=== PATIENT | male | born 1940 | race Caucasian/White ===

== ENCOUNTER 2023-04-28 14:39 | Inpatient (IN) | payer MEDICARE ==
[2023-04-28] VITALS (16 sets, daily range): BP systolic 111–155; BP diastolic 64–96
[~2023-04-28] VITALS: Ht 177.8 cm; Wt 118.9 kg
[~2023-04-28 14:39] MED LIST: ASPIRIN81 MG PO; BRIMONIDINE0.2 % OP; CARVEDILOL6.25 MG PO; CLOPIDOGREL75 MG PO; CRESTOR10 MG PO; DOXAZOSIN4 MG PO; FISH OIL1000 MG PO; FOLIC ACID1 M1; GLIPIZIDE ER2.5 MG PO; JANUVIA50 MG PO; LASIX 20 MG20 MG/TAB PO; NON-ASPIRIN PA325 MG; OMEPRAZOLE DR20 MG; TAMSULOSIN0.4 MG PO; TORSEMIDE20 M1 PO; VITAMIN B-12500 MCG PO; VITAMIN D1000 UNIT PO; XALATAN 0.005%2.5 ML OP
[2023-04-28 15:28] LABS: BASO% 0.3 % (0-3); EOS% 0.4 % (0-8); HEMATOCRIT 39.2 % (39.0-50.0); HEMOGLOBIN 13.3 g/dl (14.0-18.0); LYMPH% 5.7 % (15-41); MEAN CELL VOLUME 89.1 fL CALC (80.0-100.0); MEAN CORPUSCULAR HGB 30.2 pG CALC (26.0-32.0); MEAN CORPUSCULAR HGB CONC 33.9 g/dL CAL (32.0-36.0); MONO% 5.9 % (2-13); NEUT# 6.12 thou/uL (1.82-7.42); NEUT% 86.7 % (42-76); RED BLOOD COUNT 4.4 mill/uL (4.70-6.10); RED CELL DISTRI WIDTH 13.6 % (11.5-15.5)
[2023-04-28 15:32] LABS: ALBUMIN 4.1 g/dL (3.2-5.0); BILIRUBIN, TOTAL 0.5 mg/dL (0.2-1.3); CREATININE 2.2 mg/dL (0.7-1.3); POTASSIUM 4.6 mmol/l (3.5-5.1)
[2023-04-28 16:48] LABS: D-DIMER 0.81 mg/L (0.19-0.60)
[2023-04-28 16:53] LABS: ACT PARTIAL THROMBO TIME 22.9 SECONDS (20.0-32.5); INTERNATIONAL NORMALIZED RATIO 1.1 RATIO (0.7-1.3); PROTHROMBIN TIME 10.4 SECONDS (9.0-12.5)
[2023-04-28 17:22] LABS: TSH, 3RD GENERATION 1.02 uIU/mL (0.47 - 4.68)
[2023-04-28] MEDS ORDERED: CLARITIN10 M1 PO (22:11)
[2023-04-28] MEDS ORDERED: FLEXERIL5 M1 PO (22:13)
[2023-04-28] MEDS ORDERED: ULTRAM50 MG PO (22:15)
[2023-04-28] MEDS ORDERED: FOLIC ACID1 MG PO (22:16)
[2023-04-28] MEDS ORDERED: TRAMADOL HCL50 MG PO (22:18)
[2023-04-28] MEDS ORDERED: COZAAR50 MG PO (22:19)
[2023-04-28] MEDS ORDERED: DEBROX6.5 % OT (22:20)
[2023-04-28] MEDS ORDERED: ALLERGY RE50 MCG/ACT NAB (22:22)
[2023-04-28] MEDS ORDERED: COMBIVENT RESPIMAT IN (22:23)
[2023-04-28] MEDS ORDERED: IPRATROPIUM BR0.02 % IN (22:25)
[2023-04-29] VITALS (16 sets, daily range): BP systolic 103–147; BP diastolic 59–98
[2023-04-29 07:37] LABS: BASO% 0.1 % (0-3); HEMATOCRIT 38.5 % (39.0-50.0); HEMOGLOBIN 13.1 g/dl (14.0-18.0); IMMATURE GRANULOCYTES 1.5 % (0.0-5.0); LYMPH% 3.8 % (15-41); MEAN CELL VOLUME 88.7 fL CALC (80.0-100.0); MEAN CORPUSCULAR HGB 30.2 pG CALC (26.0-32.0); MONO% 7.1 % (2-13); NEUT# 7.37 thou/uL (1.82-7.42); NEUT% 87.5 % (42-76); RED BLOOD COUNT 4.34 mill/uL (4.70-6.10); RED CELL DISTRI WIDTH 13.6 % (11.5-15.5)
[2023-04-29 07:45] LABS: ALBUMIN 3.9 g/dL (3.2-5.0); CHOLESTEROL HDL RATIO 5.2 (<4.4 (CALC)); MAGNESIUM 1.9 mg/dL (1.6-2.3); POTASSIUM 4.5 mmol/l (3.5-5.1); TOTAL PROTEIN 6.6 g/dL (6.3-8.2)
[2023-04-29 07:48] LABS: BILIRUBIN, TOTAL 0.8 mg/dL (0.2-1.3)
[2023-04-30] VITALS (22 sets, daily range): BP systolic 72–164; BP diastolic 55–129
[2023-04-30 06:21] LABS: ALBUMIN 4.3 g/dL (3.2-5.0); BUN 53 mg/dL (8-23); CARBON DIOXIDE 28 mmol/l (22-30); CHLORIDE 96 mmol/l (95-108); CREATININE 2.4 mg/dL (0.7-1.3); GFR FOR AFR.AMER. 31 ML/MIN (>=60 (CALC)); GFR OTHER RACES 26 ML/MIN (>=60 (CALC)); POTASSIUM 3.8 mmol/l (3.5-5.1); SODIUM 133 mmol/l (137-146)
[2023-04-30 07:36] LABS: BASO% 0.1 % (0-3); EOS% 0.4 % (0-8); HEMATOCRIT 40.4 % (39.0-50.0); HEMOGLOBIN 13.7 g/dl (14.0-18.0); IMMATURE GRANULOCYTES 0.6 % (0.0-5.0); LYMPH% 6.3 % (15-41); MEAN CELL VOLUME 89.2 fL CALC (80.0-100.0); MEAN CORPUSCULAR HGB 30.2 pG CALC (26.0-32.0); MEAN CORPUSCULAR HGB CONC 33.9 g/dL CAL (32.0-36.0); MONO% 7.8 % (2-13); NEUT# 8.94 thou/uL (1.82-7.42); NEUT% 84.8 % (42-76); RED BLOOD COUNT 4.53 mill/uL (4.70-6.10); RED CELL DISTRI WIDTH 13.7 % (11.5-15.5)
[2023-05-01] VITALS (44 sets, daily range): BP systolic 91–151; BP diastolic 55–128
[2023-05-01 05:14] LABS: BASO% 0.6 % (0-3); EOS% 2.8 % (0-8); HEMOGLOBIN 13.4 g/dl (14.0-18.0); IMMATURE GRANULOCYTES 0.9 % (0.0-5.0); LYMPH% 8.8 % (15-41); MEAN CELL VOLUME 89.7 fL CALC (80.0-100.0); MEAN CORPUSCULAR HGB 30.8 pG CALC (26.0-32.0); MEAN CORPUSCULAR HGB CONC 34.4 g/dL CAL (32.0-36.0); MONO% 9.5 % (2-13); NEUT# 6.25 thou/uL (1.82-7.42); NEUT% 77.4 % (42-76); RED BLOOD COUNT 4.35 mill/uL (4.70-6.10); RED CELL DISTRI WIDTH 13.6 % (11.5-15.5)
[2023-05-01 05:36] LABS: BILIRUBIN, TOTAL 0.7 mg/dL (0.2-1.3); MAGNESIUM 2.1 mg/dL (1.6-2.3); POTASSIUM 3.6 mmol/l (3.5-5.1); TOTAL PROTEIN 6.6 g/dL (6.3-8.2)
[2023-05-02] VITALS (19 sets, daily range): BP systolic 78–150; BP diastolic 48–124
[2023-05-02 10:30] LABS: BASO% 0.3 % (0-3); EOS% 1.7 % (0-8); HEMATOCRIT 39.9 % (39.0-50.0); HEMOGLOBIN 13.9 g/dl (14.0-18.0); IMMATURE GRANULOCYTES 0.3 % (0.0-5.0); LYMPH% 5.3 % (15-41); MEAN CELL VOLUME 88.9 fL CALC (80.0-100.0); MEAN CORPUSCULAR HGB CONC 34.8 g/dL CAL (32.0-36.0); MONO% 8.3 % (2-13); NEUT# 7.28 thou/uL (1.82-7.42); NEUT% 84.1 % (42-76); RED BLOOD COUNT 4.49 mill/uL (4.70-6.10); RED CELL DISTRI WIDTH 13.5 % (11.5-15.5)
[2023-05-02 10:45] LABS: CREATININE 2.6 mg/dL (0.7-1.3); POTASSIUM 3.1 mmol/l (3.5-5.1); TOTAL PROTEIN 6.9 g/dL (6.3-8.2)
[2023-05-02] MEDS ORDERED: XARELTO15 MG PO (13:38)
[2023-05-02] MEDS ORDERED: DILTIAZEM HCL180 MG PO (13:38)
[2023-05-02] MEDS ORDERED: LASIX 20 MG TAB20 MG PO (13:40)
== END 2023-05-02 15:52 | DRG 291 ==
LOC: ED 14:39 → ED-I 17:00 → ED 17:35 → ICU 17:36 → MS2 04-30 19:37 → ICU 05-01 10:26
PROVIDERS: Family Medicine; Internal Medicine; Internal Medicine Nephrology; Nurse Practitioner Family; ADMIT Student in an Organized Health Care Education/Training Program; ATTEND Student in an Organized Health Care Education/Training Program
DX: I13.0 Hypertensive heart and chronic kidney disease with heart failure and stage 1 through stage 4 chronic kidney disease, or unspecified chronic kidney disease (principal); I50.33 Acute on chronic diastolic (congestive) heart failure; N17.9 Acute kidney failure, unspecified; E87.1 Hypo-osmolality and hyponatremia; I47.1 Supraventricular tachycardia; E11.22 Type 2 diabetes mellitus with diabetic chronic kidney disease; N18.32 Chronic kidney disease, stage 3b; D63.1 Anemia in chronic kidney disease; I48.91 Unspecified atrial fibrillation; I25.10 Atherosclerotic heart disease of native coronary artery without angina pectoris; J44.9 Chronic obstructive pulmonary disease, unspecified; I49.3 Ventricular premature depolarization; R09.02 Hypoxemia; E78.5 Hyperlipidemia, unspecified; E83.39 Other disorders of phosphorus metabolism; I45.10 Unspecified right bundle-branch block; G47.33 Obstructive sleep apnea (adult) (pediatric); N40.0 Benign prostatic hyperplasia without lower urinary tract symptoms; I25.2 Old myocardial infarction; Z95.5 Presence of coronary angioplasty implant and graft; Z90.5 Acquired absence of kidney; Z85.528 Personal history of other malignant neoplasm of kidney; Z87.891 Personal history of nicotine dependence; Z79.02 Long term (current) use of antithrombotics/antiplatelets; Z79.82 Long term (current) use of aspirin
CPT/HCPCS: J0282

== ENCOUNTER 2024-09-23 14:39 | Observation (INO) | payer MEDICARE ==
[~2024-09-23] VITALS: Ht 177.8 cm; Wt 121.6 kg
[2024-09-23] VITALS (15 sets, daily range): BP systolic 114–172; BP diastolic 61–112
[~2024-09-23 14:39] MED LIST changes: +ALLERGY RE50 MCG/ACT NAB; +ALPRAZOLAM0.5 M2 PO; +AMOX/K CLAV875 M1 PO; +BUMETANIDE0.5 M1 PO; +CLARITIN10 M1 PO; +COMBIVENT RESPIMAT IN; +CORDARONE/200 MG/TAB PO; +COZAAR50 MG PO; +DEBROX6.5 % OT; +DEMADEX20 MG PO; +DILTIAZEM HCL180 MG PO; +ELIQUIS2.5 MG PO; +FLEXERIL5 M1 PO; +FOLIC ACID1 MG PO; +IPRATROPIUM BR0.02 % IN; +LASIX 20 MG TAB20 MG PO; +LEVALBUTER1.25 MG/3 IN; +LEVALBUTER1.25 MG/3 NEB; +PLAVIX75 MG PO; +PREDNISONE10 MG PO; +TOPROL XL50 MG PO; +TRAMADOL HCL50 MG PO; +TRAZODONE50 MG PO; +ULTRAM50 MG PO; +XARELTO15 MG PO; +ZITHROMAX250 MG PO
[2024-09-23 15:18] LABS: BASO% 0.5 % (0-3); EOS% 1.7 % (0-8); HEMATOCRIT 36.7 % (39.0-50.0); HEMOGLOBIN 13.1 g/dl (14.0-18.0); IMMATURE GRANULOCYTES 0.3 % (0.0-5.0); LYMPH% 7.1 % (15-41); MEAN CELL VOLUME 86.6 fL CALC (80.0-100.0); MEAN CORPUSCULAR HGB 30.9 pG CALC (26.0-32.0); MEAN CORPUSCULAR HGB CONC 35.7 g/dL CAL (32.0-36.0); MONO% 8.1 % (2-13); NEUT# 4.76 thou/uL (1.82-7.42); NEUT% 82.3 % (42-76); RED BLOOD COUNT 4.24 mill/uL (4.70-6.10); RED CELL DISTRI WIDTH 12.2 % (11.5-15.5)
[2024-09-23 15:35] LABS: ALBUMIN 4.2 g/dL (3.2-5.0); BILIRUBIN, TOTAL 0.8 mg/dL (0.2-1.3); CREATININE 2.6 mg/dL (0.7-1.3); POTASSIUM 4.9 mmol/l (3.5-5.1)
[2024-09-23] MEDS ORDERED: PACERONE200 MG PO (15:39)
[2024-09-23 15:42] LABS: URINE BILIRUBIN - DIPSTICK Negative (NEGATIVE); URINE BLOOD DIPSTICK Negative (NEGATIVE); URINE GLUCOSE - DIPSTICK 500 mg/dL (NEGATIVE); URINE KETONE Negative (NEGATIVE); URINE LEUK ESTERASE Negative (NEGATIVE); URINE NITRITE - DIPSTICK Negative (Negative); URINE PH 5.5 (4.5-8.0); URINE PROTEIN - DIPSTICK Negative (NEG-TRACE); URINE SPECIFIC GRAVITY <=1.005; URINE UROBILINOGEN - DIPSTICK 0.2 E.U./dL (0.2)
[2024-09-23] MEDS ORDERED: TOPROL XL25 M1 PO (15:42)
[2024-09-23] MEDS ORDERED: FOLIC ACID1 MG PO (15:43)
[2024-09-23] MEDS ORDERED: PROSCAR5 MG PO (15:43)
[2024-09-23] MEDS ORDERED: VITAMIN D-32000 UNI1 PO (15:44)
[2024-09-23 15:47] LABS: URINE COLOR Yellow
[2024-09-23] MEDS ORDERED: TRAZODONE50 MG PO (15:47)
[2024-09-23] MEDS ORDERED: BRIMONIDINE0.2 % OU (15:49)
[2024-09-23] MEDS ORDERED: MELATONIN3 M1 PO (15:51)
[2024-09-23] MEDS ORDERED: SODIUM CHLORIDE 0.9% 1,000 ML IV ONE (15:55)
[2024-09-23] MEDS ORDERED: INSULIN REGULAR (HUMAN) 100 UNIT/ML INJ IV ONE (15:55)
[2024-09-23] MEDS ORDERED: INSULIN GLARGINE 100 UNITS/ML SC SCH ×2 (17:23→23:45)
[2024-09-23] MEDS ORDERED: Zaleplon 5 MG/CAP PO PRN (17:25)
[2024-09-23] MEDS ORDERED: ACETAMINOPHEN 325 MG/TAB PO PRN (17:25)
[2024-09-23] MEDS ORDERED: IPRATROPIUM BROMIDE 0.5 MG/2.5 ML SOL IN PRN (17:25)
[2024-09-23] MEDS ORDERED: ALPRAZolam 0.5 MG/TAB PO PRN (17:25)
[2024-09-23] MEDS ORDERED: MAGNESIUM HYDROXIDE 30 ML UDC PO PRN (17:25)
[2024-09-23] MEDS ORDERED: CEPHALEXIN500 M1 PO (19:06)
[2024-09-23] MEDS ORDERED: APIXABAN BASE 2.5 MG/TAB TAB PO SCH (21:00)
[2024-09-23] MEDS ORDERED: INSULIN LISPRO 100 UNITS/ML ML SC SCH (21:00)
[2024-09-23] MEDS ORDERED: TORSEMIDE 20 MG TAB PO SCH (21:00)
[2024-09-23] MEDS ORDERED: traZODone HCL 50 MG/TAB PO SCH (21:00)
[2024-09-24 03:49] VITALS: BP 148/71
[2024-09-24 05:40] LABS: ALBUMIN 3.5 g/dL (3.2-5.0); BILIRUBIN, TOTAL 0.7 mg/dL (0.2-1.3); CREATININE 2.5 mg/dL (0.7-1.3); HEMATOCRIT 34.1 % (39.0-50.0); HEMOGLOBIN 11.8 g/dl (14.0-18.0); MAGNESIUM 2.3 mg/dL (1.6-2.3); MEAN CELL VOLUME 90.5 fL CALC (80.0-100.0); MEAN CORPUSCULAR HGB 31.3 pG CALC (26.0-32.0); MEAN CORPUSCULAR HGB CONC 34.6 g/dL CAL (32.0-36.0); POTASSIUM 4.3 mmol/l (3.5-5.1); RED BLOOD COUNT 3.77 mill/uL (4.70-6.10); RED CELL DISTRI WIDTH 12.3 % (11.5-15.5); TOTAL PROTEIN 5.9 g/dL (6.3-8.2)
[2024-09-24 07:30] VITALS: BP 158/65
[2024-09-24] MEDS ORDERED: AMIODARONE 200 MG/TAB PO SCH (09:00)
[2024-09-24] MEDS ORDERED: PANTOPRAZOLE SODIUM Sesquihydr 40 MG/TAB PO SCH (09:00)
[2024-09-24] MEDS ORDERED: METOPROLOL SUCCINATE 25 MG/TAB-TOPROL XL PO SCH (09:00)
[2024-09-24] MEDS ORDERED: CLOPIDOGREL BISULFATE 75 MG/TAB TAB PO SCH (09:00)
[2024-09-24] MEDS ORDERED: FINASTERIDE 5 MG/TAB PO SCH (09:00)
[2024-09-24 10:30] VITALS: BP 105/60
[2024-09-24] MEDS ORDERED: LATANOPROST 2.5 ML BTL OU SCH ×2 (11:30→21:00)
[2024-09-24] MEDS ORDERED: CEPHALEXIN MONOHYDRATE 500 MG/CAP PO SCH (11:30)
[2024-09-24 16:00] VITALS: BP 119/56
[2024-09-24] MEDS ORDERED: INSULIN LISPRO 100 UNITS/ML ML SC SCH (17:35)
[2024-09-24] MEDS ORDERED: DEXTROSE 250 ML IV PRN (17:40)
[2024-09-24] MEDS ORDERED: DEXTROSE 50% 50 ML/SYR IV PRN (17:40)
[2024-09-24 19:12] VITALS: BP 133/82
[2024-09-24] MEDS ORDERED: ONDANSETRON HCl 4 MG/2 ML SDV IV PRN (20:30)
[2024-09-24] MEDS ORDERED: PATIENT' OWN MED 1 EA DOSE OU SCH (21:00)
[2024-09-25 00:10] VITALS: BP 141/78
[2024-09-25 04:20] VITALS: BP 174/85
[2024-09-25 05:48] VITALS: BP 125/63
[2024-09-25 05:54] LABS: ALBUMIN 3.3 g/dL (3.2-5.0); BILIRUBIN, TOTAL 0.5 mg/dL (0.2-1.3); CREATININE 2.8 mg/dL (0.7-1.3); MAGNESIUM 2.1 mg/dL (1.6-2.3); POTASSIUM 3.9 mmol/l (3.5-5.1); TOTAL PROTEIN 5.7 g/dL (6.3-8.2)
[2024-09-25 06:06] LABS: BASO% 0.7 % (0-3); EOS% 5.2 % (0-8); HEMATOCRIT 36.7 % (39.0-50.0); HEMOGLOBIN 12.1 g/dl (14.0-18.0); IMMATURE GRANULOCYTES 0.7 % (0.0-5.0); LYMPH% 9.8 % (15-41); MEAN CELL VOLUME 93.9 fL CALC (80.0-100.0); MEAN CORPUSCULAR HGB 30.9 pG CALC (26.0-32.0); MONO% 9.8 % (2-13); NEUT# 3.26 thou/uL (1.82-7.42); NEUT% 73.8 % (42-76); RED BLOOD COUNT 3.91 mill/uL (4.70-6.10); RED CELL DISTRI WIDTH 12.6 % (11.5-15.5)
[2024-09-25 10:44] VITALS: BP 127/62
[2024-09-25] MEDS ORDERED: LANTUS100 UNIT SC (11:13)
== END 2024-09-25 12:57 | disposition home or self-care (01) ==
LOC: ED 14:39 → ED-I 16:01 → ED 16:25 → MS2 16:26
PROVIDERS: Family Medicine; Internal Medicine; Nurse Practitioner Family; ADMIT Internal Medicine; ATTEND Internal Medicine
DX: E11.65 Type 2 diabetes mellitus with hyperglycemia (principal); J96.11 Chronic respiratory failure with hypoxia; I13.0 Hypertensive heart and chronic kidney disease with heart failure and stage 1 through stage 4 chronic kidney disease, or unspecified chronic kidney disease; E11.22 Type 2 diabetes mellitus with diabetic chronic kidney disease; N18.9 Chronic kidney disease, unspecified; I50.9 Heart failure, unspecified; I48.20 Chronic atrial fibrillation, unspecified; J44.9 Chronic obstructive pulmonary disease, unspecified; I25.10 Atherosclerotic heart disease of native coronary artery without angina pectoris; E66.01 Morbid (severe) obesity due to excess calories; Z90.5 Acquired absence of kidney; Z79.01 Long term (current) use of anticoagulants; Z85.528 Personal history of other malignant neoplasm of kidney; Z87.891 Personal history of nicotine dependence; Z99.81 Dependence on supplemental oxygen; Z95.5 Presence of coronary angioplasty implant and graft
CPT/HCPCS: G0378; J1815